=== PATIENT | male | born 1945 | race Hispanic/Latino ===

== ENCOUNTER 2020-11-21 10:36 | Emergency (ER) | payer MEDICARE ==
[~2020-11-21] VITALS: Ht 170.2 cm; Wt 78.5 kg
[2020-11-21] MEDS ORDERED: KEFLEX125 MG/5 M PO (11:17)
[2020-11-21] MEDS ORDERED: BACTRIM DS TAB1 EACH PO (11:17)
== END 2020-11-21 11:24 | disposition home or self-care (01) ==
LOC: FSED 10:42
DX: N39.0 Urinary tract infection, site not specified (principal)
CPT/HCPCS: 81003; 99283